=== PATIENT | female | born 1990 | race Two or more races ===

== ENCOUNTER 2018-09-08 14:29 | Inpatient (IN) | payer OTHER ==
[2018-09-08] MEDS ORDERED: ONDANSETRON 4 MG TAB.RAPDIS PO PRN (15:47)
[2018-09-08 16:20] LABS: HEMATOCRIT 32.5 % (36.0-47.0); HEMOGLOBIN 10.9 g/dL (12.0-15.5); MEAN CORPUSCULAR HEMOGLOBIN 27.7 pg (27.0-33.4); MEAN CORPUSCULAR HGB CONC 33.6 g/dL (32.0-36.0); MEAN CORPUSCULAR VOLUME 83 fl (80-97); PLATELET COUNT 309 10^3/uL (150-450); RED BLOOD COUNT 3.94 10^6/uL (3.72-5.28); RED CELL DISTRIBUTION WIDTH 15.5 % (11.5-14.0); WHITE BLOOD COUNT 8.8 10^3/uL (4.0-10.5)
[2018-09-08 16:28] LABS: INTERNATIONAL RATION (INR) 1.06; PROTHROMBIN TIME 14.3 SEC (11.4-15.4)
[2018-09-08 16:29] LABS: PARTIAL THROMBOPLASTIN TIME 38.8 SEC (23.5-35.8)
[2018-09-08 16:43] LABS: ANION GAP 8 (5-19); BLOOD UREA NITROGEN 7 mg/dL (7-20); C-REACTIVE PROTEIN 41.7 mg/L (<10.0); CALCIUM 9.4 mg/dL (8.4-10.2); CARBON DIOXIDE 28 mmol/L (22-30); CHLORIDE 104 mmol/L (98-107); GLUCOSE 74 mg/dL (75-110); POTASSIUM 3.9 mmol/L (3.6-5.0); SODIUM 139.8 mmol/L (137-145)
[2018-09-08 17:02] LABS: ERYTHROCYTE SEDIMENTATION RATE 43 mm/hr (0-20)
[2018-09-08] MEDS: OXYCODONE HCL IR 5 MG TABLET PO SCH ×2 (18:10→23:44)
[2018-09-08] MEDS: CEFTRIAXONE 2 GM/D5W RTU 2 GM/50 ML RTUPB IV SCH (18:11)
[2018-09-08] MEDS ORDERED: MORPHINE SULFATE 10 MG/ML INJ IV PRN (20:01)
[2018-09-08] MEDS: HYDROMORPHONE HCL INJ/PF 2 MG/ML AMPULE IV PRN (22:18)
[2018-09-08] MEDS: VANCOMYCIN HCL 1,000 MG in DEXTROSE 5%-WATER 250 ML IV SCH (22:19)
[2018-09-09] MEDS: HYDROMORPHONE HCL INJ/PF 2 MG/ML AMPULE IV PRN ×4 (03:22→20:40)
[2018-09-09] MEDS: RINGERS SOLUTION,LACTATED 1,000 ML IV PRN ×2 (03:23→14:41)
[2018-09-09] MEDS: VANCOMYCIN HCL 1,000 MG in DEXTROSE 5%-WATER 250 ML IV SCH ×3 (05:59→21:49)
[2018-09-09] MEDS: OXYCODONE HCL IR 5 MG TABLET PO SCH ×4 (05:59→23:34)
--- NOTE | 2018-09-09 07:05 | PDOC H&P ---
History of Present Illness Admission Date/PCP: 09/08/18 14:29 History of Present Illness: YURI SHIN is a 28 year old female Patient is a 28-year-old white female with a noncontributory past medical history who presented on Friday with a right long finger paronychia to the [facility] emergency room. She underwent percutaneous drainage and was started on Keflex. She returned twice more since that time to the [facility] emergency room for again percutaneous drainage of the paronychia and was switched from Keflex to clindamycin. She then was seen at the [facility] and was referred for further treatment of what appears to be at least a cellulitis of the right long finger and potentially underlying abscess. Past Medical History Medical History: None Past Surgical History Past Surgical History: Reports: None Social History Information Source: Patient Lives with: Family Smoking Status: Never Smoker Frequency of Alcohol Use: None Hx Recreational Drug Use: No Drugs: None Hx Prescription Drug Abuse: No Family History Family History: Reviewed & Not Pertinent Parental Family History Reviewed: No Children Family History Reviewed: No Sibling(s) Family History Reviewed.: No Medication/Allergy Home Medications: Cephalexin [Cephalexin 500 MG Tablet] 500 mg PO Q8 09/08/18 Oxycodone HCl/Acetaminophen [Percocet 5-325 mg Tablet] 1 tab PO Q6HP PRN 09/08/18 Valacyclovir HCl [Valacyclovir] 1,000 mg PO BID 09/08/18 Allergies/Adverse Reactions: prednisone Allergy (Intermediate, Verified 09/08/18 15:27) morphine Allergy (Verified 09/08/18 15:27) pineapple Allergy (Verified 09/08/18 16:14) Review of Systems All systems: as per H Physical Exam Vital Signs: Temp Pulse Resp BP Pulse Ox 36.5 C 75 18 91/48 L 100 09/08/18 23:32 09/08/18 23:32 09/08/18 23:32 09/08/18 23:32 09/08/18 23:32 Intake & Output 09/07/18 09/08/18 09/09/18 06:59 06:59 06:59 Intake Total 890 Balance 890 Weight 64.2 kg Physical Exam: Patient is a relatively trim young white female in minor to moderate distress. Pertinent orthopedic examination focuses on the right hand. General appearance: PRESENT: mild distress, well-developed Head exam: PRESENT: normocephalic Respiratory exam: PRESENT: unlabored Cardiovascular exam: PRESENT: RRR Vascular exam: PRESENT: normal capillary refill GI/Abdominal exam: PRESENT: soft Rectal exam: PRESENT: deferred Extremities exam: PRESENT: other - Pertinent orthopedic examination is focused on the right hand. Patient is right-hand dominant. There is desquamation of the skin from the mid aspect of the middle phalanx distally. There is several areas of ongoing serous drainage about the nail bed. There continues to be brisk capillary refill deep to the epithelial desquamation. Sensory examination is intact to light touch but is notably for being exquisitely tender to palpation. Range of motion both active and passive is intact at the PIP and DIP joints. Is limited by pain. Neurological exam: PRESENT: alert, awake, oriented to person, oriented to place, oriented to time, oriented to situation. ABSENT: motor sensory deficit Psychiatric exam: PRESENT: appropriate affect, normal mood. ABSENT: homicidal ideation, suicidal ideation Skin exam: PRESENT: dry, intact, warm. ABSENT: cyanosis, rash Results Laboratory Results: 09/08/18 16:10 09/08/18 16:10 09/08/18 09/08/18 16:10 16:10 WBC 8.8 RBC 3.94 Hgb 10.9 L Hct 32.5 L MCV 83 MCH 27.7 MCHC 33.6 RDW 15.5 H Plt Count 309 Sodium 139.8 Potassium 3.9 Chloride 104 Carbon Dioxide 28 Anion Gap 8 BUN 7 Creatinine 0.65 Est GFR ( Amer) > 60 Est GFR (Non-Af Amer) > 60 Glucose 74 L Calcium 9.4 C-Reactive Protein 41.7 H Status: Imported from PACS Assessment & Plan - Diagnosis (1) Paronychia of finger of right hand Is this a current diagnosis for this admission?: Yes Plan: Patient is admitted for IV antibiotics and observation. Low threshold to proceed with an I&D of the finger if it is not significantly improved with IV antibiotics. - Time Time Spent: 50 to 70 Minutes Anticipated discharge: Home with Homehealth Within: Other
[2018-09-09] MEDS ORDERED: VANCOMYCIN HCL 1,000 MG in DEXTROSE 5%-WATER 250 ML IV SCH (10:00)
[2018-09-09] MEDS ORDERED: BACITRACIN INJ 50,000 UNIT VIAL ONE (11:37)
[2018-09-09] MEDS ORDERED: DEXMEDETOMIDINE INJ 80 MCG/20 ML VIAL IV ONE (12:17)
[2018-09-09] MEDS ORDERED: FENTANYL CITRATE INJ/PF 100 MCG/2 ML AMPUL ONE (12:46)
[2018-09-09] MEDS ORDERED: ONDANSETRON HCL INJ/PF 4 MG/2 ML SDV ONE (12:47)
[2018-09-09] MEDS ORDERED: MIDAZOLAM 2 MG/2 ML INJ ONE (12:47)
[2018-09-09] MEDS ORDERED: ACETAMINOPHEN 1,000 MG/100 ML RTUPB IV ONE (12:47)
[2018-09-09] MEDS ORDERED: PROPOFOL INJ 200 MG/20 ML VIAL IV ONE (12:47)
[2018-09-09] MEDS ORDERED: PROMETHAZINE HCL INJ 25 MG/1 ML VIAL ONE (12:47)
[2018-09-09] MEDS ORDERED: LIDOCAINE 1% INJ-PF (10 MG/ML) 30 ML SDV ONE (12:50)
[2018-09-09] MEDS ORDERED: BUPIVACAINE HCL 0.25 % INJ/PF (2.5 MG/1 ML) 30 ML VIAL ONE (12:57)
--- NOTE | 2018-09-09 13:23 | Operative Report ---
Operative Report DATE OF SURGERY: 09/09/18 PREOPERATIVE DIAGNOSIS: Right long finger paronychia/cellulitis/abscess OPERATION: Irrigation debridement right long finger SURGEON: JULIENNE JOSE ANESTHESIA: LMAC ESTIMATED BLOOD LOSS: Minimal PROCEDURE: With the patient supine and operative table the right upper extremities prepped and draped in sterile fashion. A digital block is placed with a combination of Marcaine, Xylocaine through radial and ulnar dorsal stab wounds. The existing epidermal lysis is debrided using a 15 blade. The nail which was elevated is removed. A longitudinal incision was made over the dorsum of the DIP region to liberate any fluid collections. The wound is irrigated with normal saline containing bacitracin. Its bandaged with a combination of Xeroform and Brody. The patient's return to the PACU in satisfactory condition.
[2018-09-09] MEDS ORDERED: FENTANYL CITRATE INJ/PF 100 MCG/2 ML AMPUL IV PRN ×3 (13:27)
[2018-09-09] MEDS ORDERED: PROMETHAZINE HCL INJ 25 MG/1 ML VIAL IV PRN ×2 (13:27)
[2018-09-09] MEDS ORDERED: MEPERIDINE HCL/PF INJ 25 MG/1 ML DISP.SYRIN IV PRN (13:27)
[2018-09-09] MEDS ORDERED: DIPHENHYDRAMINE HCL 50 MG/ML VIAL IV PRN (13:27)
[2018-09-09] MEDS ORDERED: MORPHINE SULFATE 10 MG/ML INJ IV PRN (13:27)
[2018-09-09] MEDS ORDERED: KETOROLAC TROMETHAMINE INJ/PF 30 MG/1 ML SDV ONE (13:36)
[2018-09-09] MEDS: CEFTRIAXONE 2 GM/D5W RTU 2 GM/50 ML RTUPB IV SCH (18:04)
[2018-09-10] MEDS: HYDROMORPHONE HCL INJ/PF 2 MG/ML AMPULE IV PRN ×5 (03:42→20:39)
[2018-09-10] MEDS: RINGERS SOLUTION,LACTATED 1,000 ML IV PRN ×2 (03:42→05:49)
[2018-09-10] MEDS: VANCOMYCIN HCL 1,000 MG in DEXTROSE 5%-WATER 250 ML IV SCH (05:48)
[2018-09-10] MEDS: OXYCODONE HCL IR 5 MG TABLET PO SCH ×5 (05:48→23:06)
[2018-09-10 06:26] LABS: HEMATOCRIT 29.2 % (36.0-47.0); HEMOGLOBIN 9.9 g/dL (12.0-15.5); MEAN CORPUSCULAR HGB CONC 33.8 g/dL (32.0-36.0); MEAN CORPUSCULAR VOLUME 83 fl (80-97); PLATELET COUNT 269 10^3/uL (150-450); RED BLOOD COUNT 3.53 10^6/uL (3.72-5.28); RED CELL DISTRIBUTION WIDTH 16.1 % (11.5-14.0)
[2018-09-10 06:42] LABS: VANCOMYCIN,TROUGH 7.8 ug/mL (5.0-20.0)
[2018-09-10 06:44] LABS: ANION GAP 7 (5-19); BLOOD UREA NITROGEN 5 mg/dL (7-20); C-REACTIVE PROTEIN 16.2 mg/L (<10.0); CALCIUM 8.7 mg/dL (8.4-10.2); CARBON DIOXIDE 26 mmol/L (22-30); CHLORIDE 107 mmol/L (98-107); GLUCOSE 90 mg/dL (75-110); SODIUM 139.8 mmol/L (137-145)
--- NOTE | 2018-09-10 06:53 | PDOC PROGRESS REPORT ---
Subjective Progress Note for:: 09/10/18 Reason For Visit: R LONG FINGER CELLULITIS 28-year-old white female now postop day 1 status post irrigation and debridement of a right long finger cellulitis/paronychia. Patient with continued complaints of pain. Physical Exam Vital Signs: Temp Pulse Resp BP Pulse Ox 37.1 C 90 16 90/48 L 96 09/10/18 03:26 09/10/18 03:26 09/09/18 19:29 09/10/18 03:26 09/09/18 19:29 Intake & Output 09/08/18 09/09/18 09/10/18 06:59 06:59 06:59 Intake Total 890 4478 Balance 890 4478 Weight 64.2 kg 64 kg Physical Exam: Middle-aged white female sitting in hospital bed. She is alert, oriented, and appropriate. General appearance: PRESENT: mild distress Head exam: PRESENT: normocephalic Respiratory exam: PRESENT: unlabored Cardiovascular exam: PRESENT: RRR Vascular exam: PRESENT: normal capillary refill GI/Abdominal exam: PRESENT: soft Rectal exam: PRESENT: deferred Extremities exam: PRESENT: other - Right long finger dressing is taken down today. Both the superficial skin beginning in the middle phalanx and extended distally as well as the nail has been removed. The underlying tissue remains viable. Neurological exam: PRESENT: alert, awake, oriented to person, oriented to place, oriented to time, oriented to situation. ABSENT: motor sensory deficit Psychiatric exam: PRESENT: appropriate affect, normal mood. ABSENT: homicidal ideation, suicidal ideation Results Laboratory Results: 09/10/18 06:00 09/10/18 06:00 09/10/18 09/10/18 06:00 06:00 WBC 8.0 RBC 3.53 L Hgb 9.9 L Hct 29.2 L MCV 83 MCH 28.0 MCHC 33.8 RDW 16.1 H Plt Count 269 Sodium 139.8 Potassium 4.0 Chloride 107 Carbon Dioxide 26 Anion Gap 7 BUN 5 L Creatinine 0.63 Est GFR ( Amer) > 60 Est GFR (Non-Af Amer) > 60 Glucose 90 Calcium 8.7 C-Reactive Protein 16.2 H Status: Imported from PACS Assessment & Plan - Diagnosis (1) Paronychia of finger of right hand Is this a current diagnosis for this admission?: Yes Plan: Postop day 1. Plan for additional IV antibiotics therapy today and a decision to be made about discharge tomorrow. Intraoperative cultures demonstrated no growth so far. This may determine what regimen we send the patient home on. - Time Time Spent with patient: 15-24 minutes Anticipated discharge: Home with Homehealth Within: within 24 hours
[2018-09-10 07:45] LABS: ERYTHROCYTE SEDIMENTATION RATE 40 mm/hr (0-20)
[2018-09-10] MEDS: VANCOMYCIN HCL 1,500 MG in DEXTROSE 5%-WATER 250 ML IV SCH ×3 (14:52→23:09)
[2018-09-10] MEDS: CEFTRIAXONE 2 GM/D5W RTU 2 GM/50 ML RTUPB IV SCH (17:37)
[2018-09-11] MEDS ORDERED: VANCOMYCIN HCL INJ 1000 MG VIAL ONE (02:59)
[2018-09-11] MEDS ORDERED: VANCOMYCIN HCL INJ 500 MG VIAL ONE (03:00)
[2018-09-11] MEDS: OXYCODONE HCL IR 5 MG TABLET PO SCH (05:16)
[2018-09-11] MEDS: VANCOMYCIN HCL 1,500 MG in DEXTROSE 5%-WATER 250 ML IV SCH (05:17)
[2018-09-11] MEDS: HYDROMORPHONE HCL INJ/PF 2 MG/ML AMPULE IV PRN (08:24)
[2018-09-11] MEDS ORDERED: POLYETHYLENE GLYCOL 3350 POWDER 17 GM/1 PACKET PO PRN (09:14)
[2018-09-11 09:45] VITALS: BP 102/56
--- NOTE | 2018-09-11 12:51 | PDOC DISCHARGE SUMMARY ---
General - Admit/Disc Date/PCP Admission Date/Primary Care Provider: 09/09/18 08:00 Discharge Date: 09/11/18 - Discharge Diagnosis (1) Paronychia of finger of right hand Is this a current diagnosis for this admission?: Yes - Additional Information Resuscitation Status: Full Code Discharge Diet: As Tolerated Discharge Activity: Activity As Tolerated, No Lifting Over 10 Pounds, No Lifting/Push/Pulling Prescriptions: Amox Tr/Potassium Clavulanate [Augmentin 875-125 mg Tablet] 1 tab PO BID #20 tablet Oxycodone HCl/Acetaminophen [Percocet 5-325 mg Tablet] 1 tab PO Q6 PRN #25 tab PRN Reason: Sulfamethoxazole/Trimethoprim [Bactrim Ds Tablet] 2 each PO BID #40 tablet Home Medications: Cephalexin [Cephalexin 500 MG Tablet] 500 mg PO Q8 09/08/18 Oxycodone HCl/Acetaminophen [Percocet 5-325 mg Tablet] 1 tab PO Q6HP PRN 09/08/18 Valacyclovir HCl [Valacyclovir] 1,000 mg PO BID 09/08/18 Amox Tr/Potassium Clavulanate [Augmentin 875-125 mg Tablet] 1 tab PO BID #20 tablet 09/11/18 Oxycodone HCl/Acetaminophen [Percocet 5-325 mg Tablet] 1 tab PO Q6 PRN #25 tab 09/11/18 Sulfamethoxazole/Trimethoprim [Bactrim Ds Tablet] 2 each PO BID #40 tablet 09/11/18 History of Present Illness History of Present Illness: YURI SHIN is a 28 year old female with a noncontributory past medical history who presented on Friday with a right long finger paronychia to the [facility] emergency room. She underwent percutaneous drainage and was started on Keflex. She returned twice more since that time to the [facility] emergency room for again percutaneous drainage of the paronychia and was switched from Keflex to clindamycin. She then was seen at the [facility] and was referred for further treatment of what appears to be at least a cellulitis of the right long finger and potentially underlying abscess. Patient noted pain continue to worsen despite change in antibiotics. Hospital Course Hospital Course: Patient was admitted to the orthopedic service on 09/08/18 with infection possible abscess right middle finger. Patient was started on IV antibiotics on 09/08/18 she failed to see significant improvement underwent irrigation debridement of the middle finger on 09/09/18. After debridement patient's digit did show improvement and no residual drainage noted. Cultures demonstrate staph aureus and Streptococcus. Patient clinically felt as though the pressure and p ain did improve throughout her hospital course. 09/11/18 patient continued to have notable improvement decision was made for discharge to home Physical Exam Vital Signs: Temp Pulse Resp BP Pulse Ox 98.7 F 82 16 93/53 L 100 09/11/18 09:00 09/11/18 09:00 09/11/18 09:00 09/11/18 09:00 09/11/18 09:00 Intake & Output 09/10/18 09/11/18 09/12/18 06:59 06:59 06:59 Intake Total 5618 3880 Balance 5618 3880 Weight 64 kg 67.7 kg General appearance: PRESENT: no acute distress, well-developed, well-nourished Head exam: PRESENT: atraumatic, normocephalic Eye exam: PRESENT: conjunctiva pink, EOMI, PERRLA. ABSENT: scleral icterus Ear exam: PRESENT: normal external ear exam Mouth exam: PRESENT: moist, tongue midline Neck exam: PRESENT: full ROM. ABSENT: carotid bruit, JVD, lymphadenopathy, thyromegaly Cardiovascular exam: PRESENT: RRR. ABSENT: diastolic murmur, rubs, systolic murmur Pulses: PRESENT: normal dorsalis pedis pul, +2 pedal pulses bilateral Vascular exam: PRESENT: normal capillary refill GI/Abdominal exam: PRESENT: normal bowel sounds, soft. ABSENT: distended, guarding, mass, organolmegaly, rebound, tenderness Rectal exam: PRESENT: deferred Musculoskeletal exam: PRESENT: other - Right middle finger: Dressing removed today. Red tissue at the demarcation of the PIP joint. No palpable fluctuance or abscess. Nail plate removed. No tenderness on the flexor sheath or A1 pul junior. No pain with passive extension. No active drainage. No fusiform swelling. Neurological exam: PRESENT: alert, awake, oriented to person, oriented to place, oriented to time, oriented to situation, CN II-XII grossly intact. ABSENT: motor sensory deficit Psychiatric exam: PRESENT: appropriate affect, normal mood. ABSENT: homicidal ideation, suicidal ideation Skin exam: PRESENT: dry, intact, warm. ABSENT: cyanosis, rash Results Laboratory Results: 09/10/18 06:00 09/10/18 06:00 Qualifiers - * PATIENT BEING DISCHARGED WITH ANY OF THE FOLLOWING DIAGNOSIS: No Plan Discharge Plan: Patient symptoms significantly improved after irrigation and debridement. Cultures demonstrate staph aureus and Streptococcus. Today we will send patient home on Augmentin and Bactrim for strep/MRSA coverage respectively. We will continue daily wet-to-dry dressings. She will follow-up with me in the office in approximately 1 week for recheck. Patient was to call if she had an increase in redness swelling or drainage or presents to the emergency room. Patient read about instructions understood above instructions is orthopedic stable for discharge to home on 09/11/18.
== END 2018-09-11 09:56 | disposition home or self-care (01) | DRG 603 ==
LOC: 4N 14:29 → INTOOBSV 14:29 → OBSVTOIN 14:29
PROVIDERS: ADMIT Orthopaedic Surgery; ATTEND Orthopaedic Surgery
PROC: 0HBQXZZ Excision of Finger Nail, External Approach (ICD-10-PCS; 2018-09-09)
PROC: 0HDFXZZ Extraction of Right Hand Skin, External Approach (ICD-10-PCS; principal; 2018-09-09 10:45)
DX: L03.011 Cellulitis of right finger (principal); B95.61 Methicillin susceptible Staphylococcus aureus infection as the cause of diseases classified elsewhere; B95.5 Unspecified streptococcus as the cause of diseases classified elsewhere
CPT/HCPCS: 36415; 400; 80048; 80202; 84702; 85027; 85610; 85652; 85730; 86140; 87070; 87075; 87077; 87186; 87205; 88305; G0378; J0131; J0696; J1170; J1885; J2250; J2405; J2550; J2704; J3010; J3370; J3490; J7060; J7120